=== PATIENT | female | born 1950 | race Caucasian/White ===

== ENCOUNTER → 2025-09-08 13:08 | Outpatient (REF) | payer BC, SELFPAY | LOC: RAD 13:08 | PROVIDERS: ATTENDING PHYSICIAN Student in an Organized Health Care Education/Training Program | DX: M25.551 Pain in right hip (principal); Z12.31 Encounter for screening mammogram for malignant neoplasm of breast | CPT/HCPCS: 73502 ==

== ENCOUNTER → 2025-10-05 14:03 | Outpatient (REF) | payer BC, SELFPAY | LOC: EMG 14:03 | PROVIDERS: ATTENDING PHYSICIAN Orthopaedic Surgery; FAMILY PHYSICIAN Student in an Organized Health Care Education/Training Program | DX: R20.0 Anesthesia of skin (principal) | CPT/HCPCS: 95886; 95911 ==